=== PATIENT | male | born 1955 | race Caucasian/White ===

== ENCOUNTER 2016-11-29 09:59 | Inpatient (IN) | payer OTHER ==
[~2016-11-29] VITALS: Ht 172.7 cm; Wt 79.5 kg
[~2016-11-29 09:59] MED LIST: FOLI1TAB4 PO; INVE234I IM; RISP2TAB32 PO; TEGR200T PO; THERTAB30 PO; VITA100T60 PO
[2016-11-29] MEDS ORDERED: TAMSULOSIN (10:19)
[2016-11-29 11:01] LABS: MEAN CORPUSCULAR HEMOGLOBIN 32.6 pg (27.0-33.0); MEAN CORPUSCULAR HGB CONC 35.5 g/dl (32.0-36.5); RED CELL DISTRIBUTION WIDTH 12.5 % (11.5-14.5); WHITE BLOOD COUNT 7.6 K/mm3 (4.0-10.0)
[2016-11-29 11:30] LABS: ALBUMIN 4.3 GM/DL (3.2-5.2); ALBUMIN/GLOBULIN RATIO 1.95 (1.00-1.93); ALKALINE PHOSPHATASE 93 U/L (45-117); ALT/SGPT 26 U/L (12-78); ANION GAP 9 MEQ/L (8-16); AST/SGOT 22 U/L (15-37); BILIRUBIN,DIRECT 0.2 MG/DL (0.0-0.2); BILIRUBIN,TOTAL 0.7 MG/DL (0.2-1.0); BLOOD UREA NITROGEN 10 MG/DL (7-18); CALCIUM LEVEL 8.9 MG/DL (8.8-10.2); CARBAMAZEPINE (TEGRETOL) LEVEL 4.2 UG/ML (4.0-10.0); CARBON DIOXIDE LEVEL 26 MEQ/L (21-32); CHLORIDE LEVEL 103 MEQ/L (98-107); CREATININE FOR GFR 0.96 MG/DL (0.70-1.30); GLOMERULAR FILTRATION RATE > 60.0 (>49); GLUCOSE, FASTING 122 MG/DL (80-110); POTASSIUM SERUM 3.9 MEQ/L (3.5-5.1); SODIUM LEVEL 138 MEQ/L (136-145); TOTAL PROTEIN 6.5 GM/DL (6.4-8.2)
[2016-11-29] MEDS ORDERED: LORazepam 1 MG TAB PO STA (11:59)
[2016-11-29] MEDS ORDERED: LORazepam 1 MG TAB PO ONE (12:00)
[2016-11-29 13:59] LABS: METHADONE URINE NEGATIVE (NEGATIVE)
[2016-11-29 15:34] LABS: METHADONE URINE NEGATIVE (NEGATIVE)
[2016-11-29 16:02] VITALS: BP 138/78
[2016-11-29] MEDS ORDERED: HALOPERIDOL 5 MG TAB PO PRN (16:30)
[2016-11-29] MEDS ORDERED: LORazepam 2 MG TAB PO PRN (16:30)
[2016-11-29] MEDS ORDERED: MAALOX 30 ML SUSP *UDC PO PRN (16:45)
[2016-11-29] MEDS ORDERED: MOM 30ML SUSPENSION UDC PO PRN (16:45)
[2016-11-29] MEDS ORDERED: traZODone 50 MG TAB PO PRN (16:45)
[2016-11-29] MEDS ORDERED: ACETAMINOPHEN TAB 650MG DOSE (2X325MG) PO PRN (16:45)
[2016-11-29] MEDS: risperiDONE 2 MG TAB PO SCH (21:00)
--- NOTE | 2016-11-30 08:59 | HPEPDOC ---
Medical History and Physical Date of Admission Nov 29, 2016 at 13:12 History and Physical PCP: Dr Rojas ATTENDING: Dr. Flaquito Ríos HPI: 61yoM admitted to [facility] for schizophrenia, being medically examined today. No acute medical complaints today. Denies any fevers, chills, weakness, fatigue , HINES, CP, SOB, cough, palpitations, abdominal pain, N/V/D or changes in bowel or bladder habits. PMHx: Depression PSHX: Denies SOCHX: Resides in: [place] Marital Status: Kids: None Employment: Disabled Tobacco use: Denies ETOH: Denies Illicit Drugs: Denies IV Drug Use: Denies Tattoos done unprofessionally: Denies FAMHX: Mother: age 60 secondary to accidental carbon monoxide poisoning Father: age 48 MVA Siblings: One sister unknown Children: None Unexpected deaths due to medical reasons: None. ROS: As noted in HPI, otherwise 11pt ROS of systems reviewed and unremarkable PE: GEN: 61yoM, appears stated age. Well-nourished, well developed. No acute distress. Alert and oriented x 3.Avoids eye contact, affect flat, limited interaction. HEENT: Normocephalic, atraumatic. Pupils are equal, round, and reactive to light. Extraocular movements are intact. No nystagmus appreciated. Sclera are nonicteric. Conjunctiva without injection. Nose midline. Nasal turbinates without bogginess. EACs both patent BL. TMs both visualized and kenyon with good cone of light, no bulging or erythema. No facial asymmetry. Moist mucous membranes. Dentition fair. Pharynx pink and moist, no cobblestoning. Neck supple , trachea midline. No lymphadenopathy or thyromegaly appreciated. CHEST: Regular rate and rhythm, +S1, +S2 LUNGS: Clear to auscultation bilaterally. No wheezes, rales, or rhonchi. Breathing appears symmetric and easy. Patient is speaking in full sentences. No accessory muscle use. ABD: Round, soft, non-tender, non-distended. +Bowel sounds throughout. No rebound or guarding. No costovertebral angle tenderness. EXT: Pulses 2+ bilaterally dorsalis pedis and radial. No lower extremity edema appreciated. SKIN: [place], dry, warm. Capillary refill <2sec. No rashes. NEURO: Alert and oriented x 3. Cranial nerves III-XII are intact. No focal deficits appreciated. EKG: Pending A&P: 61yoM admitted to [facility] for schizophrenia 1. Psych. Plan per Psychiatry. Obtain baseline EKG to assure the safety of psychiatric medications as they can prolong the QT interval. 2. There are no reported home medications 3. Elevated glucose. Unclear if this was a fasting sample. Add hemoglobin A1c. 4. Follow up with PCP on discharge. 5. Staff member Thomas present throughout exam. Vital Signs Vital Signs Date Time Temp Pulse Resp B/P (MAP) Pulse Ox O2 Delivery O2 Flow Rate FiO2 11/29/16 16:02 99.0 77 18 138/78 (98) 96 Room Air Laboratory Data Labs 24H Laboratory Tests 2 11/29/16 10:47: Anion Gap 9, Glomerular Filtration Rate > 60.0, Calcium Level 8.9, Aspartate Amino Transf (AST/SGOT) 22, Alanine Aminotransferase (ALT/SGPT) 26, Alkaline Phosphatase 93, Total Bilirubin 0.7, Direct Bilirubin 0.2, Total Protein 6.5, Albumin 4.3, Albumin/Globulin Ratio 1.95H, Thyroid Stimulating Hormone (TSH) 0.974, Salicylates Level < 1.7L, Acetaminophen Level < 2.0L, Carbamazepine ( Tegretol) Level 4.2, Ethyl Alcohol Level < 0.003 11/29/16 13:10: Urine Amphetamines Screen NEGATIVE, Urine Benzodiazepines Screen NEGATIVE, Urine Opiates Screen NEGATIVE, Urine Methadone Screen NEGATIVE, Urine Barbiturates Screen NEGATIVE, Urine Phencyclidine Screen NEGATIVE, Urine Cocaine Metabolite Screen NEGATIVE, Urine Cannabinoids Screen NEGATIVE 11/29/16 14:27: Urine Amphetamines Screen NEGATIVE, Urine Benzodiazepines Screen NEGATIVE, Urine Opiates Screen NEGATIVE, Urine Methadone Screen NEGATIVE, Urine Barbiturates Screen NEGATIVE, Urine Phencyclidine Screen NEGATIVE, Urine Cocaine Metabolite Screen NEGATIVE, Urine Cannabinoids Screen NEGATIVE CBC/BMP Laboratory Tests 11/29/16 10:47 Red Blood Count 5.10, Mean Corpuscular Volume 92.0, Mean Corpuscular Hemoglobin 32.6, Mean Corpuscular Hemoglobin Concent 35.5, Red Cell Distribution Width 12.5 Home Medications Unable to Obtain Active Prescriptions or Reported Meds Allergies Coded Allergies: No Known Allergies (Unverified , 06/02/15) Duyen Pereira Nov 30, 2016 08:59
[2016-11-30] MEDS: risperiDONE 2 MG TAB PO SCH (09:00)
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
[2016-11-30] MEDS ORDERED: traZODone 100 MG TAB PO PRN (16:45)
[2016-11-30 18:00] VITALS: BP 139/78
--- NOTE | 2016-11-30 19:14 | ECGEPIP ---
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
[2016-11-30] MEDS: carBAMazepine XR 200 MG TAB PO SCH (20:19)
[2016-11-30] MEDS: PALIPERIDONE 3 MG ER TAB (INVEGA) PO SCH (20:19)
[2016-12-01 06:23] VITALS: BP 124/84
[2016-12-01] MEDS: PALIPERIDONE 3 MG ER TAB (INVEGA) PO SCH ×2 (09:00→22:23)
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
[2016-12-01] MEDS: carBAMazepine XR 200 MG TAB PO SCH ×2 (09:11→22:23)
[2016-12-01 18:00] VITALS: BP 113/69
[2016-12-02] MEDS: PALIPERIDONE 3 MG ER TAB (INVEGA) PO SCH ×2 (09:00→21:00)
[2016-12-02] MEDS: carBAMazepine XR 200 MG TAB PO SCH ×2 (09:30→21:00)
[2016-12-02 18:00] VITALS: BP 131/77
[2016-12-03 07:04] VITALS: BP 137/79
[2016-12-03] MEDS: PALIPERIDONE 3 MG ER TAB (INVEGA) PO SCH ×2 (09:00→21:00)
[2016-12-03] MEDS: carBAMazepine XR 200 MG TAB PO SCH ×2 (09:00→21:00)
--- NOTE | 2016-12-03 13:57 | IPN ---
DATE: 12/02/2016 I had been called yesterday to see the patient, to make an evaluation since I was informed that he was being [facility] [place]. The transfer did not happen. It is quite unclear as to why not. I was informed today since I am monument setter, the patient will be transferred today. We have been attempting to clarify this, as we had had no word from staff as to why this has not been done. I have just spoken with Dr. Connors, attending at [facility], I have informed her about the patient, and she has accepted him, and I understand that the patient once the other procedures are taken care of will be transferred today.
[2016-12-03 18:00] VITALS: BP 125/83
--- NOTE | 2016-12-03 22:49 | IPN ---
DATE: 12/02/2016 CHIEF COMPLAINT: Says feels okay. SUBJECTIVE: He is seen for followup, this is after he has also indicated that he does not wish to [facility] his transfer was being organized since yesterday and earlier today. Please refer to my previous note regarding that. The patient does not wish to go. MENTAL STATUS EXAMINATION: He is guarded, a bit unkempt, answers questions very briefly, affect is blunted. Judgment, insight are compromised. ASSESSMENT: Schizophrenia. PLAN: Continue current care and observation, and the treatment team will need to pursue transfer possibly at a later date.
[2016-12-04 07:16] VITALS: BP 130/68
[2016-12-04] MEDS: PALIPERIDONE 3 MG ER TAB (INVEGA) PO SCH ×2 (09:00→21:00)
[2016-12-04] MEDS: carBAMazepine XR 200 MG TAB PO SCH ×3 (09:00→21:00)
--- NOTE | 2016-12-04 09:04 | IPN ---
DATE: 12/03/2016 CHIEF COMPLAINT: Says is doing okay. SUBJECTIVE: Seen for followup, in the presence of staff. Says he is doing okay, and that he slept well, and that yesterday was good as well. MENTAL STATUS EXAMINATION: Somewhat unkempt, but a bit neater than yesterday. He is a bit guarded, superficially cooperative. He gives brief but coherent answers. Does appear possibly internally preoccupied. Judgment and insight are compromised. ASSESSMENT: Schizophrenia. PLAN: Continue current care and observations. He declined [facility] to the [facility] yesterday. He will be seeing his assigned psychiatrist tomorrow. VITAL SIGNS: Blood pressure 137/79, pulse 98, temperature 98.
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
[2016-12-04 18:19] VITALS: BP 121/64
[2016-12-05] MEDS: carBAMazepine XR 200 MG TAB PO SCH (07:56)
[2016-12-05] MEDS: PALIPERIDONE 3 MG ER TAB (INVEGA) PO SCH (09:00)
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
[2016-12-05] MEDS ORDERED: PALI1TAB2 PO (14:55)
[2016-12-05] MEDS ORDERED: HALO5TA PO (14:55)
[2016-12-05] MEDS ORDERED: TRAZ10TA PO (14:55)
[2016-12-05] MEDS ORDERED: CARB200T98 PO (14:55)
[2016-12-05] MEDS ORDERED: LORA2TA PO (14:55)
== END 2016-12-05 14:45 | DRG 885 ==
LOC: M ED 09:59 → M ED INP 13:12 → M PSY 15:52
PROVIDERS: ADMIT Psychiatry & Neurology Psychiatry; ATTEND Psychiatry & Neurology Psychiatry
DX: F20.0 Paranoid schizophrenia (principal); Z91.19 Patient's noncompliance with other medical treatment and regimen; Z91.14 Patient's other noncompliance with medication regimen; Z79.899 Other long term (current) drug therapy; R73.01 Impaired fasting glucose

== ENCOUNTER 2019-10-15 14:58 | Emergency (ER) | payer OTHER ==
[~2019-10-15] VITALS: Ht 172.7 cm; Wt 74.1 kg
[~2019-10-15 14:58] MED LIST changes: +CARB200T98 PO; +FOLI1TAB11 PO; -FOLI1TAB4 PO; +HALO5TA PO; +LORA2TA PO; +PALI1TAB2 PO; +TAMSULOSIN; +TRAZ1TAB12 PO
[2019-10-15] MEDS ORDERED: TRIF10TA (16:39)
[2019-10-15] MEDS ORDERED: DIAZ5TAB (16:39)
[2019-10-15 17:04] LABS: HEMATOCRIT 42.8 % (42.0-52.0); HEMOGLOBIN 15.4 g/dl (13.5-17.5); MEAN CORPUSCULAR HEMOGLOBIN 32.2 pg (27.0-33.0); MEAN CORPUSCULAR VOLUME 89.5 fl (80.0-96.0); PLATELET COUNT, AUTOMATED 223 10^3/uL (150-450); RED BLOOD COUNT 4.78 10^6/uL (4.30-6.10)
[2019-10-15 17:31] LABS: AMPHETAMINES LEVEL URINE NEGATIVE (NEGATIVE); BARBITURATES URINE NEGATIVE (NEGATIVE); BENZODIAZEPINES URINE POSITIVE (NEGATIVE); CANNABINOIDS URINE NEGATIVE (NEGATIVE); COCAINE METABOLITE URINE NEGATIVE (NEGATIVE); METHADONE URINE NEGATIVE (NEGATIVE); OPIATES URINE NEGATIVE (NEGATIVE); PHENCYCLIDINE URINE NEGATIVE (NEGATIVE)
[2019-10-15 17:41] LABS: ACETAMINOPHEN LEVEL < 2.0 UG/ML (10.0-30.0); ALT/SGPT 24 U/L (12-78); BILIRUBIN,DIRECT 0.1 MG/DL (0.0-0.2); BILIRUBIN,TOTAL 0.2 MG/DL (0.2-1.0); BLOOD UREA NITROGEN 5 MG/DL (7-18); CALCIUM LEVEL 8.5 MG/DL (8.8-10.2); CARBON DIOXIDE LEVEL 26 MEQ/L (21-32); CHLORIDE LEVEL 93 MEQ/L (98-107); CREATININE FOR GFR 0.67 MG/DL (0.70-1.30); ETHYL ALCOHOL (ETHANOL) < 0.003 % (0.000-0.010); GLOMERULAR FILTRATION RATE > 60.0 (>49); GLUCOSE, FASTING 102 MG/DL (70-100); POTASSIUM SERUM 4.2 MEQ/L (3.5-5.1); SALICYLATE LEVEL < 1.7 MG/DL (5.0-30.0); SODIUM LEVEL 126 MEQ/L (136-145); THYROID STIMULATING HORMONE 0.872 uIU/ML (0.358-3.740); TOTAL PROTEIN 6.2 GM/DL (6.4-8.2)
--- NOTE | 2019-10-15 19:27 | ECGEPIP ---
[facility] - ED Test Date: 2019-10-15 Pat Name: LIZ BUENO Department: Room: - Gender: Male [employer]: JOHN : 1955 Requested By: JOSEP HUNT Order Number: [id number] Reading MD: Fermin Avila Measurements Intervals [place] Rate: 77 P: 40 IN: 176 QRS: 10 QRSD: 100 T: 33 QT: 388 QTc: 439 Interpretive Statements SINUS RHYTHM NONSPECIFIC ST T WAVE CHANGES 11/30/16 RATE SIMILAR SIMILAR MORPHOLOGY Electronically Signed on 10-15-2019 19:27:17 EDT by Fermin Avila
[2019-10-15] MEDS ORDERED: NS 1,000 ML IV ONE (21:45)
[2019-10-16 11:29] VITALS: BP 161/86
== END 2019-10-16 11:35 | disposition short-term general hospital (02) ==
LOC: M ED 14:58
DX: F23 Brief psychotic disorder (principal); Z79.899 Other long term (current) drug therapy
CPT/HCPCS: 80047; 80048; 80076; 80307; 84443; 85027; 93005; 96360; 99285; G0480; U0002